=== PATIENT | male | born 1955 | race Caucasian/White ===

== ENCOUNTER 2020-01-05 06:26 | Day surgery (SDC) | payer MEDICARE, SELFPAY ==
[2020-01-04 09:21] VITALS: BMI 34.9
[2020-01-05 06:50] VITALS: BMI 35.4
[2020-01-05 07:07] VITALS: BP 168/89; PULSE 56; RESP 16; TEMP 36.4; O2SAT 97
[2020-01-05 07:09] LABS: Glucose Point of Care 132 mg/dL (70-110)
[2020-01-05] MEDS: sodium chloride 0.9% 1,000 ML 30 ML (07:12)
--- NOTE | 2020-01-05 07:35 | W.PM.OPSUD ---
Surgery/Procedure H&P Update DATE OF PROCEDURE: January 05, 2020 DATE H&P PERFORMED: 12/15/19 H&P UPDATE INFORMATION: I have reviewed H&P completed within last 30 days, I have examined patient prior to procedure and No changes to prior documentation PREOP DIAGNOSIS: Epigastric pain PRIMARY INDICATION FOR PROCEDURE: The same PLANNED PROCEDURE: Operation Date: 01/05/20 07:30 Proposed Procedures p EGD(Not Applicable) - Ander Moon MD
--- NOTE | 2020-01-05 08:07 | ANES.PREANE2 ---
Pre-Anesthetic Assessment Pre-Anesthetic Assessment: Height/Weight: Height 1.78 m Weight 112.037 kg Temp Pulse Resp BP Pulse Ox 97.1 F L 80 16 85/63 98 01/05/20 08:03 01/05/20 08:03 01/05/20 08:03 01/05/20 08:03 01/05/20 08:03 Preop Diagnosis: Epigastric pain Proposed Procedure: Operation Date: 01/05/20 07:30 Proposed Procedures p EGD(Not Applicable) - Ander Moon MD Familial anesthetic complications: denies Was Beta Ambar taken within 24 hours: N/A Last intake: Intake Last Liquid Date 01/04/20 Last Liquid Time 21:00 Last Solid Date 01/04/20 Last Solid Time 21:00 Social: Social History: No alcohol and No tobacco Exam: Pre-Anes Outpt Exam: alert, oriented x 3, clear to auscultation bilaterally and regular rate & rhythm Airway: Submandibular: WNL Cervical ROM: WNL MP: 2 Dentition: Full History/ROS: No significant history except as noted Pulmonary: Pulmonary: Sleep apnea (cpap) CV/HEM: CV/HEM: HTN : : None reported Hepatic: Hepatic: None reported GI: GI: None reported Metabolic: Metabolic: DM (prediabetic) and Morbid obesity Musc/skel: Musc/skel: OA/DJD Comments: spinal stenosis Neuropsych: Neuropsych: None reported Anesthetic Plan: ASA status: 2 Anesthesia: Anesthesia Evaluation and MAC Risk of > 500 ml blood loss (7ml/kg in children): No PFSH Anesthesia PFSH: Social History Smoking and tobacco status: former smoker Quit status (tobacco): has quit using tobacco Former quit date comment: at age 33 Alcohol intake: never Lives independently: Yes Marital status: Single Current occupational status: retired History of recent travel: No Data Anesthesia Other Labs: Laboratory Results - last 48 hr 01/05/20 07:07 POC Glucose 132 Cardiac Studies: No Data to Display
[2020-01-05 08:30] VITALS: BP 136/88; PULSE 58; RESP 16; TEMP 36.8; O2SAT 96
[2020-01-05 08:47] VITALS: BP 132/78; PULSE 59; RESP 18; O2SAT 99
--- NOTE | 2020-01-05 09:20 | ANE.PACU2 ---
 Inpatient post-anesthesia follow up: Airway intact: Yes Vital signs: Temperature 98.2 F Pulse Rate 59 Respiratory Rate 18 Blood Pressure 132/78 Pulse Oximetry 99 Oxygen Delivery Me thod Room Air Oxygen Flow Rate 2.0 Fraction of Inspir ed Oxygen Hydration adequate: Yes Nausea and vomiting: No Mental status: Baseline
[2020-01-06 05:58] LABS: H. Pylori / CLO Test Negative
== END 2020-01-05 08:55 | disposition home or self-care (01) ==
PROVIDERS: Family Provider Nurse Practitioner Family; PCP Nurse Practitioner Family; Visit Provider Surgery
PROC: 0DJ08ZZ Inspection of Upper Intestinal Tract, Via Natural or Artificial Opening Endoscopic (ICD-10-PCS; CPT 43235; principal; 2020-01-05 07:30)
DX: R10.13 Epigastric pain (principal); K21.9 Gastro-esophageal reflux disease without esophagitis; K29.70 Gastritis, unspecified, without bleeding; K29.80 Duodenitis without bleeding; I10 Essential (primary) hypertension; E11.65 Type 2 diabetes mellitus with hyperglycemia; Z83.3 Family history of diabetes mellitus; Z87.891 Personal history of nicotine dependence
CPT/HCPCS: 12345; 36416; 43239; 82962; 87077; J2001; J7030

== ENCOUNTER 2021-10-16 08:32 | Outpatient (CLI) | payer MEDICARE, SELFPAY ==
--- NOTE | 2021-10-16 08:47 | XR_ITS ---
WS: [id number] XR cervical spine 3V* [id number] REASON FOR EXAM: NECK PAIN FINDINGS: Straightening of the normal lordosis of the cervical spine. No vertebral body compression deformity or focal lesion. Normal odontoid. Mild disc space narrowing C4-T1 with large anterior osteophytes from the anterior inferior margins of the cervical vertebrae. Normal facet joint alignment. XR/XR cervical spine 3V* [id number] IMPRESSION: Multilevel degenerative disc disease as above.
== END 2021-10-16 08:33 | disposition home or self-care (01) ==
PROVIDERS: PCP Nurse Practitioner Family; Visit Provider Family Medicine
DX: M50.30 Other cervical disc degeneration, unspecified cervical region (principal)
CPT/HCPCS: 72040

== ENCOUNTER 2021-11-21 06:00 | Outpatient (RCR) | payer MEDICARE, SELFPAY | END 2021-12-03 23:59 | disposition home or self-care (01) | LOC: GPT 06:00 | PROVIDERS: PCP Nurse Practitioner Family; Referring Provider Family Medicine; Visit Provider Family Medicine | DX: M54.2 Cervicalgia (principal) | CPT/HCPCS: 97110; 97140; 97162 ==

== ENCOUNTER 2021-12-04 06:00 | Outpatient (RCR) | payer MEDICARE, SELFPAY | END 2021-12-31 23:59 | disposition home or self-care (01) | LOC: GPT 06:00 | PROVIDERS: PCP Family Medicine; Referring Provider Family Medicine; Visit Provider Family Medicine | DX: M54.2 Cervicalgia (principal) | CPT/HCPCS: 97110; 97140 ==

== ENCOUNTER → 2021-12-19 10:09 | Outpatient (BNVA) | payer MEDICARE, SELFPAY | PROVIDERS: PCP Family Medicine; Visit Provider Specialist | DX: M65.30 Trigger finger, unspecified finger (principal) | CPT/HCPCS: 73130 ==

== ENCOUNTER 2022-01-01 06:00 | Outpatient (RCR) | payer MEDICARE, SELFPAY | END 2022-01-07 23:59 | disposition home or self-care (01) | LOC: GPT 06:00 | PROVIDERS: PCP Family Medicine; Referring Provider Family Medicine; Visit Provider Family Medicine | DX: M54.2 Cervicalgia (principal) | CPT/HCPCS: 97110; 97140 ==

== ENCOUNTER 2022-12-22 10:43 | Emergency (ER) | payer MEDICARE, SELFPAY ==
[2022-12-22 10:45] VITALS: BP 233/113; PULSE 59; RESP 16; TEMP 36.7; O2SAT 97
[2022-12-22] MEDS: tetracaine 0.5% Op Soln 4 mL Btl 1 DROP EYE-LEFT (11:13)
[2022-12-22] MEDS: fluorescein 1 mg Strip EYE-LEFT (11:13)
--- NOTE | 2022-12-22 12:08 | W.ED.NEUROSD ---
HPI - Neuro Symptoms/Deficit General: Chief Complaint: Neuro Symptoms/Deficit Stated Complaint: dizzy, cant focus Time Seen by Provider: 12/22/22 10:45 History of Present Illness: Santos is a 67-year-old pleasant male with acute onset diplopia this morning. States he was waking up going about his morning routine and decided take a shower in the morning. He got out of the shower at approximately 9:30 AM and noticed some vision changes. He describes the vision changes as vertical double vision with an extra duplicated object when he focuses on distant object below that object in his visual field. Denies painful eyes, headache, shortness of breath, chest pain, neck pain, and states no changes in his vision whatsoever. He wears glasses at baseline. When he puts his glasses on he has double vision. When he takes glasses off he has a double vision. When he closes 1 eye his double vision is not present, doing this with both eyes. Associated symptoms: Deny chest pain, headache(s), nausea or vomiting Review of Systems General: Reports: 10 or more systems reviewed and unremarkable except in HPI and below Const: Denies: fever(s) or chills Eyes: Denies: change in vision or blurry vision Card: Denies: chest pain or palpitations Resp: Denies: dyspnea or productive cough GI: Denies: abdominal pain, nausea or vomiting : Denies: flank pain, difficulty urinating or urinary frequency Musc: Denies: neck pain or back pain Skin/Breast: Denies: rash or pruritus Neuro: Denies: headache(s) or numbness in extremities PFS ED PFSH: Medical History (Updated 12/22/22 @ 13:19 by Gabriel Allen MD) Benign essential hypertension History of lipoma Hypertriglyceridemia Type 2 diabetes mellitus with hyperglycemia, without long-term current use of insulin Surgical History H/O circumcision H/O colonoscopy 2020 H/O esophagogastroduodenoscopy 15 years ago Family History Father Cancer throat Other Diabetes Denies family history of Anesthesia complication Bleeding disorder Social History Smoking and tobacco status: former smoker Quit status (tobacco): has quit using tobacco Former quit date comment: at age 33 Alcohol intake: never Lives independently: Yes Marital status: Single Current occupational status: retired Physical Exam Const: COMMON NORMALS: no acute distress, average body habitus and patient oriented x3 GENERAL APPEARANCE: cooperative and comfortable HENMT: COMMON NORMALS: normocephalic, atraumatic, hearing grossly normal bilaterally, external ears normal, EAC's normal and TM's normal bilaterally HEAD & SCALP: normocephalic, atraumatic and other (Fluorescein stain and Cano lamp exam without corneal ulceration. Extraocu) EXTERNAL EAR: Yes external ears normal EXTERNAL AUDITORY CANAL: EAC's normal TYMPANIC MEMBRANE: TM's normal bilaterally OTHER: Extraocular movements intact and full without obvious limitation. On leftward gaze patient has a catch-up saccade of the left eye right beating saccade. Eye: COMMON NORMALS: Equal, round and reactive pupils present and EOMs intact bilaterally PUPIL: Yes Equal, round and reactive pupils present Neck/C-Spine: COMMON NORMALS: negative for no JVD Lymph: LYMPHATIC: no lymphadenopathy noted Chest: COMMONS NORMALS: normal inspection of the chest and normal palpation of entire chest wall Resp: COMMON NORMALS: normal respiratory effort, No retractions, No use of accessory muscles and clear to auscultation bilaterally AUSCULTATION: clear to auscultation bilaterally Cardio: COMMON NORMALS: negative for no JVD and negative for regular rate RATE: abnormal rate GI: COMMON NORMALS: Normal to inspection, nondistended, normoactive bowel sounds present, Soft to palpation and non-tender PALPATION: Yes Soft to palpation : COMMON NORMALS: Yes no CVA tenderness BLADDER/KIDNEY EXAM: Yes no CVA tenderness Back/Pelvis: COMMON NORMALS: no CVA tenderness Extremity: COMMON NORMALS: normal to inspection and full ROM Neuro: COMMON NORMALS: patient oriented x3 Course Vital Signs: Vital signs: Vital Signs Temperature 98.1 F 12/22/22 10:45 Pulse Rate 52 L 12/22/22 15:39 Respiratory Rate 18 12/22/22 15:39 Blood Pressure 210/107 12/22/22 15:39 Pulse Oximetry 96 12/22/22 15:39 Oxygen Delivery Me thod 12/22/22 10:45 MDM - Neuro Symptoms/Deficit Medical Decision Making 67-year-old male presenting with binocular diplopia. Vitals nonactionable. Considered CRAO, CRVO, posterior vitreous detachment, CVA, cranial nerve palsy, others. Given binocular diplopia that attenuates with unilateral vision, vision 20/30, 20/30, 20/30 feel less consistent with CVA at this time. Additionally patient has no headache, eye pain, photophobia, or phonophobia. Patient has no chest pain or shortness of breath. CT results evidencing posterior parietal hematoma. Patient states he hit his head on a trailer hitch some weeks ago although did not lose consciousness or have any vision changes at that time. Advised to follow-up with regular physician for antihypertensive medication management and initiation. TSH within normal limits less concern for Graves' induced exophthalmos or extraocular muscle hypertrophy. Discharged in stable condition with advised to return for worsening of symptoms or failure symptoms to improve. Lab Data 12/22/22 12:15 12/22/22 12:[address] 12/22/22 13:26 IMPRESSION: There is edema and/or hematoma in the right occipital scalp. No evidence for acute intracranial hemorrhage. Laboratory Results WBC 6.1 10^3/uL (4.0-10.0) 12/22/22 12:15 RBC 4.68 10^6/uL (4.1-5.3) 12/22/22 12:15 Hgb 13.4 g/dL (11.7-16.6) 12/22/22 12:15 Hct 39.9 % (42.0-52.0) L 12/22/22 12:15 MCV 85.3 fl (80-94) 12/22/22 12:15 MCH 28.6 pg (28.0-34.0) 12/22/22 12:15 MCHC 33.6 g/dL (30.0-36.0) 12/22/22 12:15 RDW 13.2 % (12.1-15.1) 12/22/22 12:15 Plt Count 166 10^3/cmm (130-400) 12/22/22 12:15 MPV 9.9 fL (7.4-10.4) 12/22/22 12:15 Neut % (Auto) 70.5 % 12/22/22 12:15 Lymph % (Auto) 20.0 % 12/22/22 12:15 Bent % (Auto) 5.7 % 12/22/22 12:15 Eos % (Auto) 3.1 % 12/22/22 12:15 Baso % (Auto) 0.5 % 12/22/22 12:15 Neut # (Auto) 4.31 10^3/uL (1.8-7.7) 12/22/22 12:15 Lymph # (Auto) 1.2 10^3/uL (0.8-4.8) 12/22/22 12:15 Bent # (Auto) 0.4 10^3/uL (0.2-0.9) 12/22/22 12:15 Eos # (Auto) 0.2 10^3/uL (0.0-0.8) 12/22/22 12:15 Baso # (Auto) 0.0 10^3/uL (0.0-0.1) 12/22/22 12:15 Nucleated RBC % (auto) 0 % 12/22/22 12:15 Nucleated RBCs # 0.0 /100WBC 12/22/22 12:15 Sodium 133 mmol/L (136-145) L 12/22/22 12:15 Potassium 3.9 mmol/L (3.5-5.1) 12/22/22 12:15 Chloride 98 mmol/L (98-107) 12/22/22 12:15 Carbon Dioxide 27 mmol/L (22-29) 12/22/22 12:15 Anion Gap 11.9 (5-19) 12/22/22 12:15 BUN 15 mg/dL (8-23) 12/22/22 12:15 Creatinine 1.1 mg/dL (0.7-1.2) 12/22/22 12:15 GFR Calculation 66.4 mL/min (90-130) L 12/22/22 12:15 Glucose 185 mg/dL (65-115) H 12/22/22 12:15 Calculated Osmolality 282 mOsm/kg (285-295) L 12/22/22 12:15 Calcium 8.5 mg/dL (8.5-10.5) 12/22/22 12:15 TSH 1.03 uIU/mL (0.27-4.20) 12/22/22 12:15 Discharge Plan Discharge Patient Disposition: Home Clinical Impression: Binocular vision disorder with diplopia, Hypertension Condition: Stable Prescriptions: New lisinopril 10 mg tablet 10 mg PO DAILY Qty: 20 0RF No Action alpha lipoic acid 600 mg capsule 600 mg PO EVERY OTHER DAY coenzyme Q10 [Co Q-10] 200 mg capsule 200 mg PO EVERY OTHER DAY magnesium 200 mg tablet 200 mg PO DAILY PRN (Reason: unknown) ascorbic acid (vitamin C) 500 mg capsule 500 mg PO Q7D cholecalciferol (vitamin D3) [Vitamin D3] 2,000 unit Tablet 4,000 unit PO EVERY OTHER DAY Fish Oil Concentrate 1,000 mg Capsule 1,000 mg PO DAILY ibuprofen 200 mg Capsule 400 mg PO Q6H PRN (Reason: Pain) Vitamin B-12 1,000 mcg Tablet 1,000 mcg PO DAILY Prostate Plus 2 tab PO DAILY Discharge Orders: Discharge ED (Routine); Ordered 12/22/22 Ordered By: Gabriel Allen Referrals: Rory Prajapati MD [Primary Care Provider] - (Follow-up with your regular doctor for referral to ophthalmology. If your symptoms worsen or change including vision loss return to the emergency department for repeat evaluation. Follow-up for blood pressure monitoring and consideration of BP meds.) Gabriel Allen MD [Emergency Provider] - Discharge Diet: Usual diet Discharge Activity: Resume usual activity Patient Instructions: Diplopia (ED), Opioid Safety, Pain Management Coding Level of Care Code ED Patient Care Manager for Abner Ortiz
--- NOTE | 2022-12-22 12:33 | PC.NURSE ---
PT BILATERAL VISUAL ACUITY IS 20/30 CORRECTIVE LENSES BEING USED.
[2022-12-22 12:37] LABS: Basophils % 0.5 %; Eosinophils # 0.2 10^3/uL (0.0-0.8); Eosinophils % 3.1 %; Hematocrit 39.9 % (42.0-52.0); Hemoglobin 13.4 g/dL (11.7-16.6); Lymphocytes # 1.2 10^3/uL (0.8-4.8); Mean Corpuscular HGB Conc 33.6 g/dL (30.0-36.0); Mean Corpuscular Hemoglobin 28.6 pg (28.0-34.0); Mean Corpuscular Volume 85.3 fl (80-94); Mean Platelet Volume 9.9 fL (7.4-10.4); Monocytes # 0.4 10^3/uL (0.2-0.9); Monocytes % 5.7 %; Neutrophils # 4.31 10^3/uL (1.8-7.7); Neutrophils % 70.5 %; Nucleated Red Blood Cells % 0 %; Platelet Count 166 10^3/cmm (130-400); Red Blood Count 4.68 10^6/uL (4.1-5.3); Red Cell Distribution Width 13.2 % (12.1-15.1); White Blood Count 6.1 10^3/uL (4.0-10.0)
[2022-12-22 12:46] LABS: Anion Gap 11.9 (5-19); Blood Urea Nitrogen 15 mg/dL (8-23); Calcium 8.5 mg/dL (8.5-10.5); Carbon Dioxide 27 mmol/L (22-29); Chloride 98 mmol/L (98-107); Glomerular Filtration Rate 66.4 mL/min (90-130); Glucose 185 mg/dL (65-115); Osmolality Calculated 282 mOsm/kg (285-295); Potassium 3.9 mmol/L (3.5-5.1); Sodium 133 mmol/L (136-145)
--- NOTE | 2022-12-22 13:26 | CTR_ITS ---
PROCEDURE INFORMATION: Exam: CT Head Without Contrast Exam date and time: 12/22/2022 1:31 PM Age: 67 years old Clinical indication: Other: HTN and head pain with blurry vision, eval ich TECHNIQUE: Imaging protocol: Computed tomography of the head without contrast. Radiation optimization: All CT scans at this facility use at least one of these dose optimization techniques: automated exposure control; mA and/or kV adjustment per patient size (includes targeted exams where dose is matched to clinical indication); or iterative reconstruction. Other protocol: This patient has received 0 known CTs and 0 known cardiac nuclear medicine studies in the 12 months prior to the current study. COMPARISON: CR XR cervical spine 3V* [id number] 10/16/2021 9:10 AM RADIATION DOSE METRICS: Total DLP (mGy-cm): 1159.08 FINDINGS: Brain: There is mild diffuse cerebral atrophy present, consistent with this patient's age. No evidence for acute intracranial hemorrhage.No evidence for large acute ischemic infarction. Please note acute ischemia can be occult by head CT. Cerebral ventricles: No ventriculomegaly. Paranasal sinuses: Visualized sinuses are unremarkable. No fluid levels. Mastoid air cells: Visualized mastoid air cells are well aerated. Bones/joints: Unremarkable. No acute fracture. Soft tissues: There is edema and/or hematoma in the right occipital scalp. CT/CT head wo con* [id number] IMPRESSION: There is edema and/or hematoma in the right occipital scalp. No evidence for acute intracranial hemorrhage.
[2022-12-22] MEDS: metoprolol tartrate 25 mg Tablet PO (13:49)
[2022-12-22 13:54] LABS: Thyroid Stimulating Hormone 1.03 uIU/mL (0.27-4.20)
--- NOTE | 2022-12-22 15:38 | PC.NURSE ---
PT BP IS 210/[address] KENDY ROMAN TO CONTINUE WITH DC.
[2022-12-22 15:39] VITALS: BP 210/107; PULSE 52; RESP 18; O2SAT 96
== END 2022-12-22 15:40 | disposition home or self-care (01) ==
PROVIDERS: Emergency Provider General Practice; PCP Family Medicine
DX: H53.2 Diplopia (principal); S00.03XA Contusion of scalp, initial encounter; W22.09XA Striking against other stationary object, initial encounter; I10 Essential (primary) hypertension; Z87.891 Personal history of nicotine dependence
CPT/HCPCS: 36415; 70450; 80048; 84443; 85025; 99284